=== PATIENT | male | born 1980 | race Asian ===

== ENCOUNTER 2017-02-03 03:04 | Emergency (ER) | payer OTHER ==
[~2017-02-03] VITALS: Ht 190.5 cm; Wt 88.5 kg
[~2017-02-03 03:04] MED LIST: AMLO2.5T PO; METOPROLOL25 M1 OR
[2017-02-03 03:12] VITALS: BP 118/73; TEMP 98.1
[2017-02-03 03:56] LABS: PLATELET COUNT 146 K/uL (142-355)
[2017-02-03 04:05] LABS: POTASSIUM 3.8 mmol/L (3.6-5.2); SODIUM 136 mmol/L (136-145)
== END 2017-02-03 05:18 | disposition home or self-care (01) ==
LOC: ED 03:04
DX: I48.91 Unspecified atrial fibrillation (principal); R18.8 Other ascites; K74.69 Other cirrhosis of liver; I50.9 Heart failure, unspecified; I45.81 Long QT syndrome
CPT/HCPCS: 36415; 80053; 81000; 83880; 85027; 93005; 99283

== ENCOUNTER 2017-03-28 09:39 | Outpatient (CLI) | payer OTHER | END 2017-03-28 10:45 | disposition home or self-care (01) | LOC: US 09:39 | DX: R94.5 Abnormal results of liver function studies (principal) ==

== ENCOUNTER 2020-11-30 14:48 | Emergency (ER) | payer OTHER ==
[~2020-11-30] VITALS: Ht 190.5 cm; Wt 153.3 kg
[2020-11-30 16:08] VITALS: BP 154/84; TEMP 98.1
== END 2020-11-30 16:08 | disposition home or self-care (01) ==
LOC: ED 14:48
DX: H60.8X2 Other otitis externa, left ear (principal)
CPT/HCPCS: 96372; 99282; J0696